=== PATIENT | female | born 1960 | race Caucasian/White ===

== ENCOUNTER 2019-10-08 08:01 | Day surgery (SDC) | payer OTHER ==
[~2019-10-08] VITALS: Ht 154.9 cm; Wt 63.5 kg
[2019-10-08 09:11] VITALS: BP 137/67
[2019-10-08 12:31] VITALS: BP 100/64
== END 2019-10-08 12:15 | disposition home or self-care (01) ==
LOC: DS 08:01 → OR 11:00 → GI 11:00 → DS 12:15
DX: K59.00 Constipation, unspecified (principal); K63.89 Other specified diseases of intestine
CPT/HCPCS: 45378; J1200; J1610; J2250; J2310; J3010; J3490